=== PATIENT | male | born 1995 | race Native Hawaiian/Other Pacific Islander ===

== ENCOUNTER 2023-01-06 07:50 | Outpatient (CLI) | payer BC | END 2023-01-06 19:18 | disposition home or self-care (01) | LOC: US 07:50 | PROVIDERS: ATTEND Internal Medicine | DX: R14.0 Abdominal distension (gaseous) (principal); R19.4 Change in bowel habit; R19.7 Diarrhea, unspecified; R11.2 Nausea with vomiting, unspecified; R63.0 Anorexia; R10.11 Right upper quadrant pain ==

== ENCOUNTER 2023-01-11 08:16 | Outpatient (CLI) | payer BC | END 2023-01-11 18:49 | disposition home or self-care (01) | LOC: NM 08:16 | PROVIDERS: ATTEND Internal Medicine | DX: R14.0 Abdominal distension (gaseous) (principal); R19.4 Change in bowel habit; R19.7 Diarrhea, unspecified; R11.2 Nausea with vomiting, unspecified; R63.0 Anorexia; R10.11 Right upper quadrant pain | CPT/HCPCS: A9537 ==